=== PATIENT | male | born 1960 | race Two or more races ===

== ENCOUNTER 2020-09-22 09:14 | Inpatient (IN) | payer OTHER ==
[~2020-09-22] VITALS: Ht 175.3 cm; Wt 81.6 kg
[2020-09-22] MEDS ORDERED: LEVOTHYROXINE25 MCG (10:22)
[2020-09-22] MEDS ORDERED: CORTISONE60 GM (10:23)
[2020-09-22] MEDS ORDERED: LIPITOR40 M1 (10:23)
== END 2020-10-02 12:32 | disposition home or self-care (01) | DRG 177 ==
LOC: ER 09:14 → MEDJ 16:57
PROVIDERS: ADMIT Internal Medicine; ATTEND Internal Medicine
PROC: 4A12X4Z Monitoring of Cardiac Electrical Activity, External Approach (ICD-10-PCS; principal; 2020-09-22)
PROC: 8E0ZXY6 Isolation (ICD-10-PCS; 2020-09-22)
PROC: XW033E5 Introduction of Remdesivir Anti-infective into Peripheral Vein, Percutaneous Approach, New Technology Group 5 (ICD-10-PCS; 2020-09-22)
PROC: 3E0F7SF Introduction of Other Gas into Respiratory Tract, Via Natural or Artificial Opening (ICD-10-PCS; 2020-09-22)
PROC: 4A033R1 Measurement of Arterial Saturation, Peripheral, Percutaneous Approach (ICD-10-PCS; 2020-09-22)
DX: U07.1 COVID-19 (principal); J12.82 Pneumonia due to coronavirus disease 2019; I10 Essential (primary) hypertension; E03.8 Other specified hypothyroidism; F41.9 Anxiety disorder, unspecified; Z20.822 Contact with and (suspected) exposure to COVID-19; R09.02 Hypoxemia; E55.9 Vitamin D deficiency, unspecified; K59.09 Other constipation

== ENCOUNTER 2020-11-24 14:53 | Outpatient (CLI) | payer OTHER ==
[~2020-11-24 14:53] MED LIST: CORTISONE60 GM; LEVOTHYROXINE25 MCG; LIPITOR40 M1
== END 2020-11-24 15:07 | disposition home or self-care (01) ==
LOC: TOM 14:53
PROVIDERS: ATTEND Internal Medicine Pulmonary Disease
DX: J12.81 Pneumonia due to SARS-associated coronavirus (principal); U07.1 COVID-19; R06.02 Shortness of breath

== ENCOUNTER → 2022-04-14 | Outpatient (CLI) | payer OTHER | END | disposition home or self-care (01) | LOC: RAD 14:21 | PROVIDERS: ATTEND Internal Medicine Pulmonary Disease | DX: U09.9 Post COVID-19 condition, unspecified (principal); R06.02 Shortness of breath ==

== ENCOUNTER 2023-09-28 10:00 | Outpatient (CLI) | payer OTHER | END 2023-09-28 10:10 | disposition home or self-care (01) | LOC: RAD 10:00 | PROVIDERS: ATTEND Internal Medicine Pulmonary Disease | DX: J45.41 Moderate persistent asthma with (acute) exacerbation (principal) ==